=== PATIENT | male | born 1980 ===

== ENCOUNTER 2017-04-09 18:53 | Emergency (ER) | payer MEDICAID, OTHER ==
[2017-04-09 19:00] VITALS: BP 191/94; PULSE 77; RESP 16; TEMP 98.2; O2SAT 99
--- NOTE | 2017-04-09 19:49 | ED PDOC ---
HPI: Psych/Substance Abuse Time Seen by Provider: 04/09/17 19:11 Chief Complaint (Nursing): Psychiatric Evaluation Chief Complaint (Provider): auditory hallucinations History Per: Patient History/Exam Limitations: no limitations Onset/Duration Of Symptoms: Days (x 1 year) Current Symptoms Are (Timing): Still Present Additional Complaint(s): 36 year old male with a past medical history of schizophrenia and bipolar disorder, presents complaining of auditory hallucinations for the past year. Patient was previously on Invega Sustenna. States he has lost his psychiatric follow up due to appointments being cancelled and would like to be started on medication again. Patient is hearing multiple voices that are non- command. Denies suicidal or homicidal ideations. PMD: Shahram Mckenzie Past Medical History Reviewed: Historical Data, Nursing Documentation, Vital Signs Vital Signs: Last Vital Signs Temp 98.2 F 04/09/17 18:58 Pulse 77 04/09/17 18:58 Resp 16 04/09/17 18:58 BP 191/94 H 04/09/17 18:58 Pulse Ox 99 04/09/17 18:58 - Medical History PMH: Bipolar Disorder, Schizophrenia - Surgical History Surgical History: No Surg Hx - Family History Family History: States: Unknown Family Hx - Social History Current smoker - smoking cessation education provided: No Alcohol: None Drugs: Denies - Immunization History Hx Tetanus Toxoid Vaccination: No Hx Influenza Vaccination: No Hx Pneumococcal Vaccination: No - Home Medications Home Medications: Ambulatory Orders Medication Instructions Recorded Acetaminophen/Hydrocodone Bi 1 tab PO Q4 PRN #12 tab 12/08/16 [Vicodin 300 mg-5 mg] Ciprofloxacin HCl [Cipro] 500 mg PO BID #20 tablet 12/08/16 metroNIDAZOLE [Flagyl] 500 mg PO TID #30 tab 12/08/16 - Allergies Allergies/Adverse Reactions: Allergies Allergy/AdvReac Type Severity Reaction Status Date / Time No Known Allergies Allergy Verified 12/08/16 15:12 Review of Systems ROS Statement: Except As Marked, All Systems Reviewed And Found Negative Psych: Positive for: Other (Auditory hallucinations). Negative for: Suicidal ideation (or homicidal) Physical Exam - Reviewed Nursing Documentation Reviewed: Yes Vital Signs Reviewed: Yes - Physical Exam Appears: Positive for: Non-toxic, No Acute Distress Head Exam: Positive for: ATRAUMATIC, NORMAL INSPECTION, NORMOCEPHALIC Skin: Positive for: Normal Color, Warm, Dry Eye Exam: Positive for: EOMI, Normal appearance, PERRL Neck: Positive for: Normal, Painless ROM Cardiovascular/Chest: Positive for: Regular Rate, Rhythm. Negative for: Murmur Respiratory: Positive for: Normal Breath Sounds. Negative for: Accessory Muscle Use, Respiratory Distress Gastrointestinal/Abdominal: Positive for: Normal Exam, Soft. Negative for: Tenderness Back: Positive for: Normal Inspection. Negative for: L CVA Tenderness, R CVA Tenderness, Vertebral Tenderness Extremity: Positive for: Normal ROM. Negative for: Pedal Edema, Deformity Neurologic/Psych: Positive for: Alert, Oriented - ECG O2 Sat by Pulse Oximetry: 99 (RA) Pulse Ox Interpretation: Normal Medical Decision Making Medical Decision Making: Initial Impression: 36 year old male with auditory hallucinations in setting of known schizophrenia Time: 7:19 Initial Plan: * Crisis evaluation supervisor hand workers evaluated patient. Discussed with Dr. Panda, who does not feel comfortable starting patient on Invega. Patient provided with outpatient psychiatric resources and encouraged to follow up. Stable for discharge home. Scribe Attestation: Documented by Mariama Puente, acting as a scribe for Toni Epstein MD Provider Scribe Attestation: All medical record entries made by the Scribe were at my direction and personally dictated by me. I have reviewed the chart and agree that the record accurately reflects my personal performance of the history, physical exam, medical decision making, and the department course for this patient. I have also personally directed, reviewed, and agree with the discharge instructions and disposition. Disposition - Clinical Impression Clinical Impression: Schizophrenia - Patient ED Disposition Is Patient to be Admitted: No Counseled Patient/Family Regarding: Diagnosis, Need For Followup - Disposition Disposition: Routine/Home Disposition Time: 07:46 Condition: STABLE Instructions: Schizophrenia Forms: [employer] (Spanish) - POA Present On Arrival: None
== END 2017-04-09 20:00 | disposition home or self-care (01) ==
LOC: H.ER 18:53
DX: F20.9 Schizophrenia, unspecified (principal); F31.9 Bipolar disorder, unspecified

== ENCOUNTER 2018-05-24 00:30 | Emergency (ER) | payer MEDICAID, OTHER ==
--- NOTE | 2018-05-24 01:21 | ED PDOC ---
HPI: Psych/Substance Abuse Time Seen by Provider: 05/24/18 00:45 Chief Complaint (Nursing): Psychiatric Evaluation Chief Complaint (Provider): crisis eval History Per: Patient History/Exam Limitations: no limitations Additional Complaint(s): 37 y/o male brought in by EMS for psych eval. Patient admits to history of schizophrenia, states he has been off of his medication for over 3 years and constantly hears voices. Patient states in the last week he has been under more stress due to a recent break up with his fiance, not seeing his kids, and his father leaving for [facility] [employer] Patient states he smoked PCP tonight to try and calm himself down and states it made him "paranoid" so he called 911. Patient states he is feeling better now. Denies suicidal/homicidal ideations, acute physical complaints. Past Medical History Reviewed: Historical Data, Nursing Documentation, Vital Signs Vital Signs: Last Vital Signs Temp 98.6 F 05/24/18 00:32 Pulse 96 H 05/24/18 00:32 Resp 16 05/24/18 00:32 BP 164/104 H 05/24/18 00:32 Pulse Ox 98 05/24/18 00:32 - Medical History PMH: Bipolar Disorder, Diabetes, Schizophrenia Denies: Hepatitis, HIV, HTN, Seizures, Sexually Transmitted Disease - Family History Family History: States: Unknown Family Hx - Immunization History Hx Tetanus Toxoid Vaccination: No Hx Influenza Vaccination: No Hx Pneumococcal Vaccination: No - Home Medications Home Medications: Ambulatory Orders Medication Instructions Recorded Acetaminophen/Hydrocodone Bi 1 tab PO Q4 PRN #12 tab 12/08/16 [Vicodin 300 mg-5 mg] Ciprofloxacin HCl [Cipro] 500 mg PO BID #20 tablet 12/08/16 metroNIDAZOLE [Flagyl] 500 mg PO TID #30 tab 12/08/16 - Allergies Allergies/Adverse Reactions: Allergies Allergy/AdvReac Type Severity Reaction Status Date / Time No Known Allergies Allergy Verified 05/24/18 00:31 Review of Systems ROS Statement: Except As Marked, All Systems Reviewed And Found Negative Psych: Positive for: Psychosis Physical Exam - Reviewed Nursing Documentation Reviewed: Yes Vital Signs Reviewed: Yes - Physical Exam Appears: Positive for: Well, Non-toxic, No Acute Distress Head Exam: Positive for: ATRAUMATIC, NORMAL INSPECTION, NORMOCEPHALIC Skin: Positive for: Normal Color Eye Exam: Positive for: Normal appearance ENT: Positive for: Normal ENT Inspection Cardiovascular/Chest: Positive for: Regular Rate, Rhythm Respiratory: Positive for: Normal Breath Sounds Gastrointestinal/Abdominal: Positive for: Normal Exam Back: Positive for: Normal Inspection Extremity: Positive for: Normal ROM Neurological/Psych: Positive for: Awake, Alert, Oriented (x3) - ECG O2 Sat by Pulse Oximetry: 98 - Progress ED Course And Treament: Patient evaluated by preparation room worker; does not meet criteria for admission at this time as per Dr. Hay Information given for outpatient follow up Patient requires no further intervention in the ED and is stable for discharge at this time Return precautions given Disposition - Clinical Impression Clinical Impression: Phencyclidine (PCP) use disorder, mild - Patient ED Disposition Is Patient to be Admitted: No Counseled Patient/Family Regarding: Diagnosis, Need For Followup - Disposition Disposition: Routine/Home Disposition Time: 02:20 Condition: IMPROVED Instructions: Drug Abuse and Drug Addiction (DC)
[2018-05-24 02:30] VITALS: BP 144/90; PULSE 83; RESP 18; TEMP 98.7; O2SAT 96
== END 2018-05-24 02:30 | disposition home or self-care (01) ==
LOC: H.ER 00:30
DX: F16.90 Hallucinogen use, unspecified, uncomplicated (principal); F19.90 Other psychoactive substance use, unspecified, uncomplicated; E11.9 Type 2 diabetes mellitus without complications; Z86.59 Personal history of other mental and behavioral disorders; Z00.8 Encounter for other general examination